=== PATIENT | male | born 1995 | race Caucasian/White ===

== ENCOUNTER 2021-06-06 08:48 | Emergency (ER) | payer SELFPAY ==
[~2021-06-06] VITALS: Ht 177.8 cm; Wt 91.0 kg
[2021-06-06 08:56] VITALS: BP 155/92
[2021-06-06] MEDS ORDERED: IBUPROFEN 600MG TABLET PO ONE (09:30)
== END 2021-06-06 10:37 | disposition home or self-care (01) ==
LOC: ER 08:48
DX: M79.18 Myalgia, other site (principal); M25.561 Pain in right knee; M54.2 Cervicalgia; V43.62XA Car passenger injured in collision with other type car in traffic accident, initial encounter; Y93.89 Activity, other specified; Y92.410 Unspecified street and highway as the place of occurrence of the external cause
CPT/HCPCS: 73562; 99283